=== PATIENT | female | born 1980 | race African-American/Black ===

== ENCOUNTER 2025-04-12 20:24 | Emergency (ER) | payer OTHER ==
[~2025-04-12] VITALS: Ht 165.1 cm; Wt 106.1 kg
[2025-04-12 20:55] VITALS: O2SAT 100
[2025-04-12 20:59] VITALS: BP 132/61; PULSE 99; RESP 16; TEMP 36.7; O2SAT 98
[2025-04-12 21:44] LABS: BASOPHILS % 0.3 % (0.0-2.0); EOSINOPHILS % 0.5 % (0.0-5.0); HEMATOCRIT. 32.7 % (36.0-48.0); HEMOGLOBIN. 10.2 g/dL (12.0-16.0); LYMPHOCYTES % 28.4 % (20.0-50.0); MEAN PLATELET VOLUME 8.7 fl (7.4-10.4); MONOCYTES % 11.6 % (2.0-8.0); NEUTROPHILS % 59.2 % (40.0-76.0); PLATELET 245 x1000/uL (130-400); RED BLOOD CELL COUNT 4.76 mill/uL (4.2-5.4); RED CELL DISTRIBUTION WIDTH 15.5 % (11.6-14.6)
[2025-04-12 21:45] LABS: ADD RBC MORPHOLOGY YES
[2025-04-12 21:57] LABS: CREATININE 1.1 mg/dL (0.6-1.0); UREA NITROGEN BLOOD 10 mg/dL (9-23)
[2025-04-12 22:18] LABS: PLATELET ESTIMATE NORMAL
[2025-04-12] MEDS ORDERED: CEPH500T MT (23:26)
== END 2025-04-12 23:57 | disposition home or self-care (01) ==
LOC: ER 20:24
DX: L03.116 Cellulitis of left lower limb (principal); Z79.899 Other long term (current) drug therapy
CPT/HCPCS: 36415; 80048; 85025; 93970; 99284

== ENCOUNTER 2025-04-22 19:51 | Emergency (ER) | payer OTHER ==
[~2025-04-22] VITALS: Ht 165.1 cm; Wt 109.2 kg
[~2025-04-22 19:51] MED LIST: CEPH500T MT
[2025-04-22 20:47] VITALS: O2SAT 98
[2025-04-22] MEDS ORDERED: CEPH500C2 MT (23:10)
[2025-04-22 23:40] VITALS: BP 138/63; PULSE 68; RESP 18; TEMP 36.7; O2SAT 98
== END 2025-04-22 23:44 | disposition home or self-care (01) ==
LOC: ER 19:51
DX: L03.116 Cellulitis of left lower limb (principal); Z76.0 Encounter for issue of repeat prescription
CPT/HCPCS: 99282